=== PATIENT | female | born 1935 | race Caucasian/White ===

== ENCOUNTER 2016-06-22 13:09 | Outpatient (CLI) | payer OTHER ==
[~2016-06-22 13:09] MED LIST: ALPHAGAN P0.1 %; ALPRAZOLAM0.25 MG; ATACAND4 MG PO; COMBIVENT RESPIMAT IN; COREG3.125 MG PO; FERROUS GLUCON324 MG PO; FUROSEMIDE20 MG PO; GABAPENTIN300 MG PO; HYDROCHLOROTH12.5 MG PO; LANTUS SOL100 UNITS/ SC; MUCINEX600 MG PO; NOVOLOG PE100 UNITS/ SC; PERCOCET1 TA1 PO; PLAVIX75 MG PO; PRILOSEC20 MG PO; RANITIDINE ACID75 MG; SUPRAX PO; SUPRAX200 MG PO; TIZANIDINE HCL4 MG PO; VITAMIN D-31000 UNIT PO; ZOCOR20 MG; [UNRECOGNIZED DRUG - OTHER]
--- NOTE | 2016-06-22 14:32 | DIAGNOSTIC IMAGING REPORT ---
PROCEDURE: CT THORAX ABD PELVIS W/O CONT INDICATION: RT KIDNEY MASS FOLLOW UP TECHNIQUE: Axial scans through the chest, abdomen and pelvis with coronal and sagittal re-formations. COMPARISON: CT chest/abdomen/pelvis 07/09/2014, renal ultrasound 10/22/[address] abdomen/pelvis 01/19/2016. FINDINGS: Chest: There are several small calcified granulomas as well as several noncalcified nodules (2 - 4 mm) which are stable. There is a 7 mm noncalcified left lower lobe nodule (image 35) with minimal progression (previously 6 mm) since CT scans 07/09/2014. Scattered blebs. Left breast and axillary surgical clips. Calcified mediastinal and right hilar lymph nodes. No effusion. Mild atherosclerosis of the aorta. Dense coronary atherosclerosis. Mitral annulus calcification. Normal heart size. No suspicious osseous lesions. Abdomen: Stable 3.2 cm ill-defined cystic mass (12 HU) in the right renal lower pole. 2.3 cm left renal upper pole cyst. Mild bilateral renal atrophy. No hydronephrosis. Hepatic and splenic calcified granulomas. Splenule. Several calcified gallstones, up to 6 mm. Pancreas and adrenal glands are normal. Moderate atherosclerosis of the aorta. Mild diverticulosis of the ascending, transverse and descending colon. Small bowel is unremarkable. 3.5 cm midline supraumbilical fat- containing hernia. Moderate degenerative changes of the spine. Grade 1 L4-5 anterolisthesis. Pelvis: Appendix not visualized. No pelvic surgical changes. Mild diverticulosis of the sigmoid colon. Hysterectomy. Normal bladder. There is no pelvic mass, inflammatory changes or free fluid. No suspicious osseous lesions. IMPRESSION: 1. Stable 3.2 cm ill-defined right renal cystic structure 2. 2.3 cm simple left renal cyst 3. Old granulomatous disease (lungs, liver and spleen). Minimal progression of 7 mm noncalcified left lower lobe nodule, possibly a noncalcified granuloma. 4. Left breast and axillary surgical changes 5. Cholelithiasis 6. Diverticulosis 7. Hysterectomy
== END 2016-06-22 23:00 ==
LOC: CT SRH 13:09
DX: N28.1 Cyst of kidney, acquired (principal); J98.4 Other disorders of lung; K80.20 Calculus of gallbladder without cholecystitis without obstruction; K57.30 Diverticulosis of large intestine without perforation or abscess without bleeding; Z90.710 Acquired absence of both cervix and uterus

== ENCOUNTER 2016-07-12 14:45 | Outpatient (CLI) | payer OTHER ==
--- NOTE | 2016-07-12 18:20 | DIAGNOSTIC IMAGING REPORT ---
PROCEDURE: XR MAJOR JT INJ OR ASPIRATION INDICATION: Right hip pain. TECHNIQUE: The patient was advised of the usual risks and complications including infection, bleeding, and allergy. Supine position. Following sterile preparation and 1% lidocaine anesthetic, fluoroscopic guidance (1.4 minutes, 4-58.7 to mGy) was utilized to place a 22- gauge spinal needle into the anterolateral aspect of the right joint. Intraarticular position was confirmed with 2 mL of Isovue 200 contrast material. Subsequently, a 7mL solution (2 mL 40 mg/mL Kenalog, 4 mL 1% lidocaine, 1 mL 0.5% Marcaine) was infused and the needle was withdrawn. COMPARISON: Comparison is made to radiographs of the pelvis and left hip (contralateral side) from [facility] on 04/06/2016. FINDINGS: Two AP views. Confirmation of intraarticular injection. Mild degenerative changes of the right hip joint. The patient tolerated the procedure reasonably well and was discharged home in satisfactory condition with instructions to resume routine activity the following day, and to call for any untoward symptoms (increasing pain/swelling). IMPRESSION: 1. Successful fluoroscopically guided therapeutic injection of the right hip joint.
== END 2016-07-12 23:00 ==
LOC: XR SRH 14:45
PROC: 3E0U33Z Introduction of Anti-inflammatory into Joints, Percutaneous Approach (ICD-10-PCS; principal; 2016-07-12)
PROC: BQ10ZZZ Fluoroscopy of Right Hip (ICD-10-PCS; 2016-07-12)
DX: M16.11 Unilateral primary osteoarthritis, right hip (principal)